=== PATIENT | male | born 1955 | race Caucasian/White ===

== ENCOUNTER 2018-01-14 10:58 | Emergency (ER) | payer BC, MEDICAID ==
[2018-01-14 11:05] VITALS: BMI 22.4
--- NOTE | 2018-01-14 11:19 | ED PDOC ---
Arrival/HPI - General Historian: Patient, Family - History of Present Illness Time/Duration: Prior to Arrival, 1 hour Symptom Onset: Sudden Symptom Course: Unchanged Quality: Throbbing Activities at Onset: Other <Ivan Cleveland - Last Filed: 01/14/18 12:24> <Matthew Carmona DO - Last Filed: 01/14/18 22:23> - General Chief Complaint: Trauma Time Seen by Provider: 01/14/18 11:02 - History of Present Illness Narrative History of Present Illness (Text): 01/14/18 11:16 62M presents to [facility] ED after hitting his head after a door opened. Patient fell back however did not hit is head on the ground. States no loss of consciousness , feels dizzy, however is able to walk. There was no loss of teeth. patient is able to communicate in full sentences. Two superficial abrasions on left side of forehead and on bridge of nose. Currently has a headache localized to the location of the trauma, and left sided neck pain that is worse with sidebending to the the right. Denies current: LOC, changes in vision, numbness/tingling in extremities, inablility to ambulate PMH: NIDDM, HLD PSH: hemorrhoidectomy ALL: NKDA Social: denies etoh, tobacco, recreational drug use (Ivan Cleveland) Modifying Factors (Text): 01/14/18 11:20 Sidebending head to the right (Ivan Cleveland) Past Medical History - Provider Review Nursing Documentation Reviewed: Yes - Travel History Have you recently traveled outside [place] w/in the past 3 mons?: No - Infectious Disease Hx of Infectious Diseases: None - Tetanus Immunization Tetanus Immunization: Unknown, >10 years Ago - Past Medical History Past Medical History: Non-Contributing - Cardiac Hx IN: No - Neurological HX Cerebrovascular Accident: No Hx Transient Ischemic Attacks (TIA): No - Endocrine/Metabolic Hx Endocrine Disorders: Yes Hx Diabetes Mellitus Type 2: Yes - Hematological/Oncological Hx Blood Transfusions: No Hx Blood Transfusion Reaction: No - Musculoskeletal/Rheumatological Hx Back Pain: No Hx Falls: No Hx Fractures: No - Gastrointestinal Hx Gastrointestinal Disorders: No - Psychiatric Hx Substance Use: No - Surgical History Hx Tonsillectomy: Yes - Anesthesia Hx Anesthesia: Yes Hx Anesthesia Reactions: No Hx Malignant Hyperthermia: No <Ivan Cleveland - Last Filed: 01/14/18 12:24> Family/Social History - Physician Review Nursing Documentation Reviewed: Yes Family/Social History: Hypertension Smoking Status: Former Smoker Hx Alcohol Use: No Hx Substance Use: No <Ivan Cleveland - Last Filed: 01/14/18 12:24> Allergies/Home Meds <Ivan Cleveland - Last Filed: 01/14/18 12:24> <Matthew Carmona DO - Last Filed: 01/14/18 22:23> Allergies/Adverse Reactions: Allergies No Known Allergies Allergy (Verified 01/14/18 11:14) Home Medications: Home Meds Medication Instructions Recorded Confirmed SITagliptin [Januvia] 100 mg PO DAILY 04/04/17 01/14/18 Dulaglutide [Trulicity] 0.75 mg SC QWK 01/14/18 01/14/18 Glimepiride [Amaryl] 1 mg PO DAILY 01/14/18 01/14/18 Review of Systems - Physician Review All systems were reviewed & negative as marked: Yes - Review of Systems Constitutional: Normal. absent: Fevers, Night Sweats ENT: absent: Tinnitus, Voice Changes, Rhinorrhea, Epistaxis Respiratory: absent: SOB, Cough, Sputum, Wheezing Cardiovascular: absent: Chest Pain, Palpitations, Edema, Calf Pain Gastrointestinal: Normal. absent: Abdominal Pain, Stool Changes Musculoskeletal: Neck Pain (paraveterbral) Skin: Laceration (superficial on nose and left side of head) Psychiatric: Normal <Ivan Cleveland - Last Filed: 01/14/18 12:24> Physical Exam Vital Signs Reviewed: Yes Temperature: Afebrile Blood Pressure: Normal Pulse: Regular Respiratory Rate: Normal Appearance: Positive for: Well-Appearing, Non-Toxic, Comfortable Mental Status: Positive for: Alert and Oriented X 3 - Systems Exam Head: Present: Tenderness, Swelling (two areas of contusions on fore head. Left side superficial break in skin. no active bleeding) Nose (External): Present: Abrasion, Contusion (maxilla is stable) Neck: Present: Other (Limited ROM on sidebending to the left. Remainder complete ROM F/E Rotation, sidebending) Respiratory/Chest: No: Respiratory Distress, Accessory Muscle Use Cardiovascular: Present: Regular Rate and Rhythm, Normal S1, S2 Abdomen: Present: Normal Bowel Sounds. No: Tenderness, Distention, Peritoneal Signs, Rebound, Guarding Upper Extremity: Present: Normal Inspection, NORMAL PULSES. No: Edema Lower Extremity: Present: Normal Inspection, NORMAL PULSES. No: Edema Neurological: Present: GCS=15, CN II-XII Intact, Speech Normal, Motor Func Grossly Intact, Normal Cerebellar Funct Skin: Present: Warm, Normal Color Psychiatric: Present: Oriented x 3 <Ivan Cleveland - Last Filed: 01/14/18 12:24> Vital Signs Temp Pulse Resp BP Pulse Ox 01/14/18 13:03 98.1 F 89 16 142/89 99 01/14/18 11:08 98.5 F 77 19 155/95 H 96 Medical Decision Making Re-evaluation Time: 12:15 (Radiology CT reviewed. Normal head CT) <Ivan Cleveland - Last Filed: 01/14/18 12:24> <Matthew Carmona DO - Last Filed: 01/14/18 22:23> ED Course and Treatment: Communicate with patient in full sentences Stated tetanus shot greater than 10 years ago; agreed to get updated tetanus shot (TDAP) will order CT of the head to r/o fx or ICH (Ivan Cleveland) - RAD Interpretation Radiology Orders: 01/14/18 11:13 HEAD W/O CONTRAST [CT] Stat - Medication Orders Current Medication Orders: Discontinued Medications Acetaminophen (Tylenol 325mg Tab) 975 mg PO STAT STA Stop: 01/14/18 11:24 Last Admin: 01/14/18 11:32 Dose: 975 mg [facility] Pain/Vitals Document 01/14/18 11:32 MS (Rec: 01/14/18 11:32 MS [id number]) Pain Reassessment Is This A Pain ReAssessment? No Sleep Is patient sleeping during reassessment? No Presence of Pain Presence of Pain Yes Pain Scale Used Pain Scale Used Numeric Location Pain Location Body Ceiling Insulation Blower Description Constant Intensity 9 Scale Used Numeric Tetanus/Reduced Diphtheria/Acell Pertussis (Boostrix Vaccine Inj) 0.5 ml IM .ONCE ONE Stop: 01/14/18 11:30 Last Admin: 01/14/18 12:48 Dose: 0.5 ml [facility] Immunization Data Document 01/14/18 12:48 MS (Rec: 01/14/18 12:48 MS [id number]) Immunization Data Vaccine Information Sheet Given Yes Immunization Registry Document 01/14/18 12:48 MS (Rec: 01/14/18 12:48 MS [id number]) Immunization Registry Consent Date 09/24/17 - PA / DIVERSITY SPECIALIST / Resident Statement SANDIE has reviewed & agrees with the documentation as recorded. SANDIE has examined the patient and agrees with the treatment plan. <Matthew Carmona DO - Last Filed: 01/14/18 22:23> Disposition/Present on Arrival - Present on Arrival Any Indicators Present on Arrival: No History of DVT/PE: No History of Uncontrolled Diabetes: No Urinary Catheter: No History of Decub. Ulcer: No History Surgical Site Infection Following: None - Disposition Have Diagnosis and Disposition been Completed?: Yes Disposition Time: 12:25 Patient Plan: Discharge <Ivan Cleveland - Last Filed: 01/14/18 12:24> - Disposition Disposition Time: 12:15 <Matthew Carmona DO - Last Filed: 01/14/18 22:23> - Disposition Diagnosis: Head contusion Disposition: HOME/ ROUTINE Condition: GOOD Discharge Instructions (ExitCare): Minor Head Injury (DC) Additional Instructions: Thank you for letting us take care of you today. The emergency medical care you received today was directed at your acute symptoms. If you were prescribed any medication, please fill it and take as directed. It may take several days for your symptoms to resolve. Return to the Emergency Department if your symptoms worsen, do not improve, or if you have any other problems. Please contact your doctor or call one of the physicians/clinics you have been referred to that are listed on the Patient Visit Information form that is included in your discharge packet. Bring any paperwork you were given at discharge with you along with any medications you are taking to your follow up visit. Our treatment cannot replace ongoing medical care by a primary care provider (PCP) outside of the emergency department. Thank you for allowing the [facility] team to be part of your care today. Follow up w/ Primary care doctor in 2-3 days for re-evaluation Referrals: [facility], [Non-Staff] - Forms: [employer] (Nigerian)
[2018-01-14] MEDS ORDERED: TDAP Vaccine 0.5 mL Syr IM ONE (11:29)
--- NOTE | 2018-01-14 12:11 | CT ---
PROCEDURE: CT HEAD WITHOUT CONTRAST. HISTORY: head injury - r/o ICH and fx COMPARISON: None available. TECHNIQUE: Axial computed tomography images were obtained through the head/brain without intravenous contrast. Radiation dose: Total exam DLP = 844 mGy-cm. This CT exam was performed using one or more of the following dose reduction techniques: Automated exposure control, adjustment of the mA and/or kV according to patient size, and/or use of iterative reconstruction technique. FINDINGS: HEMORRHAGE: No intracranial hemorrhage. BRAIN: No mass effect or edema. No atrophy or chronic microvascular ischemic changes. VENTRICLES: Unremarkable. No hydrocephalus. CALVARIUM: Unremarkable. PARANASAL SINUSES: Unremarkable as visualized. No significant inflammatory changes. MASTOID AIR CELLS: Unremarkable as visualized. No inflammatory changes. OTHER FINDINGS: None. IMPRESSION: No acute findings
[2018-01-14 13:04] VITALS: BP 142/89; PULSE 89; RESP 16; TEMP 98.1; O2SAT 99
== END 2018-01-14 12:50 | disposition home or self-care (01) ==
LOC: ED 10:58
DX: S00.93XA Contusion of unspecified part of head, initial encounter (principal); W19.XXXA Unspecified fall, initial encounter; E11.9 Type 2 diabetes mellitus without complications; E78.5 Hyperlipidemia, unspecified; Z23 Encounter for immunization; Z87.891 Personal history of nicotine dependence